=== PATIENT | female | born 1985 | race Caucasian/White ===

== ENCOUNTER 2019-11-12 18:36 | Emergency (ER) | payer SELFPAY ==
[2019-11-12 19:07] LABS: Absolute Lymphocytes (CBC) 1.4 K/uL (0.7-4.9); Basophils % 0.6 % (0-1.3); Hematocrit 38.7 % (36.0-45.0); Lymphocytes % 20.6 % (15.3-44.8); MPV 8.1 fL (7.6-11.3); RBC Red Blood Cell Count 4.29 M/uL (3.86-4.86)
[2019-11-12] MEDS ORDERED: MORPHINE 4 MG/ML SYR ONE (19:07)
[2019-11-12] MEDS ORDERED: ONDANSETRON 4 MG/2 ML VIAL ONE (19:07)
[2019-11-12 19:25] LABS: Albumin 3.9 g/dL (3.4-5.0); Bilirubin Direct 0.2 mg/dL (0-0.2); Bilirubin Total 0.8 mg/dL (0.2-1.0); Potassium 3.6 mmol/L (3.5-5.1); Protein, Total 7.5 g/dL (6.4-8.2)
--- NOTE | 2019-11-12 20:04 | RAD REPORT ---
EXAM DESCRIPTION: CT - Abdomen Pelvis W Contrast - 11/12/2019 7:48 pm CLINICAL HISTORY: ABD PAIN COMPARISON: <Comparisons> TECHNIQUE: Biphasic, helical CT imaging of the abdomen and pelvis was performed following 100 ml non -ionic IV contrast. No oral contrast given. All CT scans are performed using dose optimization technique as appropriate and may include automated exposure control or mA/KV adjustment according to patient size. FINDINGS: No suspicious findings in the lung bases. The liver, spleen, and pancreas show no suspicious findings. Gallbladder and biliary tree are also wi thout suspicious finding. Symmetric renal function is seen with no hydronephrosis or suspicious renal mass. No pyelonephritis o r acute parenchymal process. No bladder abnormalities. No adrenal abnormalities. No dilated bowel loops or bowel wall thickening. Appendix is normal. Trace free fluid in the cul-de-s ac is within physiologic limits. No free air, pneumatosis or inflammatory stranding. No hernia, mass or bulky lymphadenopathy. Uterus and ovaries show no suspicious findings. No suspicious bony findings. IMPRESSION: Contrast enhanced CT abdomen and pelvis showing no significant or suspicious finding.
[2019-11-12 20:05] LABS: Urine Blood 1+ (NEG); Urine Glucose NEGATIVE (NEG); Urine Protein NEGATIVE (NEG); Urine Specific Gravity 1.015 (1.005-1.030)
--- NOTE | 2019-11-12 20:25 | EDPHYS ---
Physician Documentation [facility] Name: Bernie Bauer Age: 34 yrs Sex: Female : 1985 Arrival Date: 11/12/2019 Time: 18:38 Bed 24 Private MD: ED Physician Bryan Gibbons HPI: 11/12 20:06 This 34 yrs old Female presents to ER via Ambulatory with complaints of pm1 Abdominal Pain, Vomiting. 20:06 The patient presents with abdominal pain in the left lower quadrant. Onset: The pm1 symptoms/episode began/occurred Onset: The symptoms/episode began/occurred Ongoing to 3 years worse the past few days. 20:06 The symptoms do not radiate. Associated signs and symptoms: Pertinent positives: pm1 nausea, vomiting, and diarrhea, Pertinent negatives: constipation, dysuria, fever, shortness of breath. Associated signs and symptoms: Pertinent positives: vaginal bleeding. The symptoms are described as achy. Severity of pain: in the emergency department the pain is actually worse. The patient has experienced similar episodes in the past, multiple times. It is unknown whether or not the patient has recently seen a physician. 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 - Coronavirus screen:: The patient has NOT traveled to [place], [place], or [place] in the past 14 days. - Social history:: Smoking status: Patient/guardian denies using tobacco. - Ebola Screening: : Patient denies travel to an Ebola-affected area in the 21 days before illness onset. ROS: 20:06 Constitutional: Negative for fever, chills, and weight loss, Cardiovascular: Negative pm1 for chest pain, palpitations, and edema, Respiratory: Negative for shortness of breath, cough, wheezing, and pleuritic chest pain. 20:06 Back: Negative for injury and pain, : Negative for injury, bleeding, discharge, and swelling, MS/Extremity: Negative for injury and deformity, Skin: Negative for injury, rash, and discoloration, Neuro: Negative for headache, weakness, numbness, tingling, and seizure. 20:06 Abdomen/GI: Positive for abdominal pain, nausea, vomiting, and diarrhea, Negative for constipation. Exam: 20:06 Constitutional: This is a well developed, well nourished patient who is awake, alert, pm1 and in no acute distress. Head/Face: Normocephalic, atraumatic. Neck: Trachea midline, no thyromegaly or masses palpated, and no cervical lymphadenopathy. Supple, full range of motion without nuchal rigidity, or vertebral point tenderness. No Meningismus. Chest/axilla: Normal chest wall appearance and motion. Nontender with no deformity. No lesions are appreciated. Cardiovascular: Regular rate and rhythm with a normal S1 and S2. No gallops, murmurs, or rubs. Normal PMI, no JVD. No pulse deficits. Respiratory: Lungs have equal breath sounds bilaterally, clear to auscultation and percussion. No rales, rhonchi or wheezes noted. No increased work of breathing, no retractions or nasal flaring. 20:06 Back: No spinal tenderness. No costovertebral tenderness. Full range of motion. Skin: Warm, dry with normal turgor. Normal color with no rashes, no lesions, and no evidence of cellulitis. MS/ Extremity: Pulses equal, no cyanosis. Neurovascular intact. Full, normal range of motion. 20:06 Abdomen/GI: Inspection: abdomen appears normal, Bowel sounds: normal, Palpation: soft, in all quadrants, mild abdominal tenderness, in the left lower quadrant, mass, is not appreciated, rebound tenderness, is not appreciated, Pain to left LLQ reproduced with moving her left leg. 20:06 Neuro: Orientation: is normal, Motor: is normal, moves all fours. Vital Signs: 18:47 BP 126 / 70; Pulse 113; Resp 20; Temp 98.0; Pulse Ox 99% on R/A; Weight 56.7 kg (R); aj1 Height 5 ft. 4 in. (162.56 cm) (R); Pain 6/10; 20:45 BP 122 / 80; Pulse 90; Resp 17; Temp 98; Pulse Ox 100% on R/A; mg2 18:47 Body Mass Index 21.46 (56.70 kg, 162.56 cm) aj1 MDM: 19:00 Patient medically screened. pm1 20:22 Data reviewed: vital signs. Data interpreted: Pulse oximetry: on room air is 99 %. pm1 Interpretation: normal. Counseling: I had a detailed discussion with the patient and/or guardian regarding: the historical points, exam findings, and any diagnostic results supporting the discharge/admit diagnosis, lab results, radiology results, the need for outpatient follow up, to return to the emergency department if symptoms worsen or persist or if there are any questions or concerns that arise at home. 11/12 18:53 Order name: Basic Metabolic Panel; Complete Time: 20:06 mg2 11/12 18:53 Order name: CBC with Diff; Complete Time: 20:06 mg2 11/12 18:53 Order name: Creatinine for Radiology; Complete Time: 20:06 mg2 11/12 18:53 Order name: Hepatic Function; Complete Time: 20:06 mg2 11/12 18:53 Order name: Lipase; Complete Time: 20:06 mg2 11/12 19:32 Order name: Urine Dipstick--Ancillary (enter results); Complete Time: 20:06 ms 11/12 18:53 Order name: IV Saline Lock; Complete Time: 19:07 mg2 11/12 18:53 Order name: Labs collected and sent; Complete Time: 19:07 mg2 11/12 19:01 Order name: Urine Dipstick-Ancillary (obtain specimen); Complete Time: 19:40 pm1 11/12 19:01 Order name: Urine Test (obtain specimen); Complete Time: 19:40 pm1 11/12 19:01 Order name: CT Abd/Pelvis - IV Contrast Only; Complete Time: 20:06 pm1 11/12 19:32 Order name: Urine --Ancillary (enter results); Complete Time: 20:06 ms Administered Medications: 19:08 Drug: Zofran 4 mg Route: IVP; Site: right antecubital; mg2 20:32 Follow up: Response: No adverse reaction mg2 19:09 Drug: morphine 4 mg Route: IVP; Site: right antecubital; mg2 20:32 Follow up: Response: No adverse reaction mg2 Disposition: 11/13 07:38 Co-signature as Attending Physician, Bryan Gibbons MD I agree with the assessment and elva plan of care. Disposition: 11/12/19 20:23 Discharged to Home. Impression: Unspecified abdominal pain, Vomiting, Diarrhea, unspecified. - Condition is Stable. - Discharge Instructions: Abdominal Pain, Adult, Diarrhea, Adult, Nausea and Vomiting, Adult. - Prescriptions for Tylenol- Codeine #3 300-30 mg Oral Tablet - take 2 tablets by ORAL route every 6 hours As needed; 20 tablet. Zofran 4 mg Oral Tablet - take 1 tablet by ORAL route every 12 hours As needed; 20 tablet. - Medication Reconciliation Form, Thank You Letter, Antibiotic Education, Prescription Opioid Use form. - Follow up: Emergency Department; When: As needed; Reason: Worsening of condition. Follow up: Private Physician; When: 2 - 3 days; Reason: Recheck today's complaints, Continuance of care, Re-evaluation by your physician. - Problem is new. - Symptoms have improved. Signatures: Dispatcher [employer] EDMS Padmini Link RN RN aj1 Bryan Gibbons MD MD cha Marinas, Patrick, NP FOREST FIRE CONTROL OFFICER pm1 Masood Vela RN RN mg2 Corrections: (The following items were deleted from the chart) 11/12 20:47 20:23 11/12/2019 20:23 Discharged to Home. Impression: Unspecified abdominal pain; mg2 Vomiting; Diarrhea, unspecified. Condition is Stable. Forms are Medication Reconciliation Form, Thank You Letter, Antibiotic Education, Prescription Opioid Use. Follow up: Emergency Department; When: As needed; Reason: Worsening of condition. Follow up: Private Physician; When: 2 - 3 days; Reason: Recheck today's complaints, Continuance of care, Re-evaluation by your physician. Problem is new. Symptoms have improved. pm1 11/13 03:21 11/12 20:06 Onset: The symptoms/episode began/occurred pm1 pm1
--- NOTE | 2019-11-12 20:25 | ER ---
Nurse's Notes [facility] Name: Bernie Bauer Age: 34 yrs Sex: Female : 1985 Arrival Date: 11/12/2019 Time: 18:38 Bed 24 Private MD: Diagnosis: Unspecified abdominal pain;Vomiting;Diarrhea, unspecified Presentation: 11/12 18:43 Presenting complaint: Patient states: "I've been having ovary pains, I had an ectopic aj1 3 years ago and I had surgery here, so I've had those pains, but the past few days its really been hurting and then today I started vomiting and I couldn't stop. States that she did not take a test at home. Patient also reports diarrhea, denies fever. Transition of care: patient was not received from another setting of care. Onset of symptoms was November 2019. Risk Assessment: Do you want to hurt yourself or someone else? Patient reports no desire to harm self or others. Initial Sepsis Screen: Does the patient meet any 2 criteria? No. Patient's initial sepsis screen is negative. Does the patient have a suspected source of infection? Yes: Acute abdominal pain. Care prior to arrival: None. 18:43 Method Of Arrival: Ambulatory aj1 18:43 Acuity: ALFONSO 3 aj1 Triage Assessment: 18:47 General: Appears in no apparent distress. uncomfortable, Behavior is calm, cooperative, aj1 appropriate for age. Pain: Complains of pain in left femoral area and left inguinal area. Neuro: Level of Consciousness is awake, alert, obeys commands, Oriented to person, place, time, situation. Cardiovascular: Patient's skin is warm and dry. Respiratory: Airway is patent Respiratory effort is even, unlabored, Respiratory pattern is regular, symmetrical. GI: Reports nausea, vomiting. 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 - Coronavirus screen:: The patient has NOT traveled to [place], [place], or [place] in the past 14 days. - Social history:: Smoking status: Patient/guardian denies using tobacco. - Ebola Screening: : Patient denies travel to an Ebola-affected area in the 21 days before illness onset. Screenin:10 Abuse screen: Denies threats or abuse. Denies injuries from another. Nutritional mg2 screening: No deficits noted. Tuberculosis screening: No symptoms or risk factors identified. Fall Risk IV access (20 points). Assessment: 19:11 General: Appears in no apparent distress. uncomfortable, Behavior is calm, cooperative. mg2 Pain: Complains of pain in left abdomen Pain at worst was 10 out of 10 on a pain scale. Neuro: Level of Consciousness is awake, alert, obeys commands, Oriented to person, place, time, situation. Cardiovascular: Capillary refill < 3 seconds Patient's skin is warm and dry. Respiratory: Airway is patent Respiratory effort is even, unlabored, Respiratory pattern is regular, symmetrical. GI: Bowel sounds present X 4 quads. Abd is soft Abdomen is tender to palpation in left upper quadrant. GI: Reports nausea, vomiting. EENT: No signs and/or symptoms were reported regarding the EENT system. Derm: Skin is intact, is healthy with good turgor, Skin is pink, warm \\T\\ dry. normal. Musculoskeletal: Circulation, motion, and sensation intact. Capillary refill < 3 seconds. 20:45 Reassessment: Patient appears in no apparent distress at this time. Patient states mg2 feeling better. Vital Signs: 18:47 BP 126 / 70; Pulse 113; Resp 20; Temp 98.0; Pulse Ox 99% on R/A; Weight 56.7 kg (R); aj1 Height 5 ft. 4 in. (162.56 cm) (R); Pain 6/10; 20:45 BP 122 / 80; Pulse 90; Resp 17; Temp 98; Pulse Ox 100% on R/A; mg2 18:47 Body Mass Index 21.46 (56.70 kg, 162.56 cm) aj1 ED Course: 18:38 Patient arrived in ED. mr 18:46 Triage completed. aj1 18:47 Arm band placed on Patient placed in an exam room. aj1 18:50 Masood Vela RN is Primary Nurse. mg2 18:54 Naga Guan NP is PHCP. pm1 18:54 Bryan Gibbons MD is Attending Physician. pm1 19:10 Patient has correct armband on for positive identification. mg2 19:10 No provider procedures requiring assistance completed. Inserted saline lock: 20 gauge mg2 in right antecubital area, using aseptic technique. Blood collected. 19:48 CT completed. Patient tolerated procedure well. Patient moved back from CT. bq 19:49 CT Abd/Pelvis - IV Contrast Only In Process Unspecified. EDMS 20:45 IV discontinued, intact, bleeding controlled, No redness/swelling at site. Pressure mg2 dressing applied. Administered Medications: 19:08 Drug: Zofran 4 mg Route: IVP; Site: right antecubital; mg2 20:32 Follow up: Response: No adverse reaction mg2 19:09 Drug: morphine 4 mg Route: IVP; Site: right antecubital; mg2 20:32 Follow up: Response: No adverse reaction mg2 Outcome: 20:23 Discharge ordered by . pm1 20:46 Discharged to home ambulatory, with family. mg2 20:46 Condition: stable 20:46 Discharge instructions given to patient, family, Instructed on discharge instructions, follow up and referral plans. medication usage, Demonstrated understanding of instructions, follow-up care, medications, Prescriptions given X 2. 20:47 Patient left the ED. mg2 Signatures: Dispatcher [employer] EDMS Padmini Link RN RN aj1 Maida Landry mr Kae Ledesma Patrick, CALLI RESIDENTIAL [employer] SEALING TECHNICIAN pm1 Masood Vela RN RN mg2
[2019-11-12 21:01] VITALS: BP 122/80; TEMP 98; O2SAT 100
== END 2019-11-12 20:47 | disposition home or self-care (01) ==
LOC: ER 18:36
DX: R11.10 Vomiting, unspecified (principal); R19.7 Diarrhea, unspecified
CPT/HCPCS: 36415; 74177; 80048; 80076; 81003; 81025; 83690; 85025; 96374; 96375; 99284; J2405; Q9967